=== PATIENT | male | born 1985 | race Caucasian/White ===

== ENCOUNTER 2016-06-20 18:22 | Emergency (ER) | payer OTHER ==
[~2016-06-20] VITALS: Ht 175.3 cm; Wt 76.4 kg
[2016-06-20 18:34] VITALS: BP 121/77; PULSE 98; RESP 16; TEMP 97.5; O2SAT 95
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
--- NOTE | 2016-06-20 21:47 | RADRPT ---
EXAM DATE/TIME: 06/20/2016 19:37 [facility] COMPARISON: No previous studies available for comparison. INDICATIONS : Patient complains of lower back pain after being in [facility]. MEDICAL HISTORY : None. SURGICAL HISTORY : None. ENCOUNTER: Initial ACUITY: 1 day PAIN SCORE: 2/10 LOCATION: L-Spine FINDINGS: Two view examination was performed. There are five non-rib bearing vertebral bodies. The vertebral bodies are in normal alignment without evidence of subluxation or scoliosis. The disc spaces are kavitha ntained. The pedicles are intact. Bony mineralization is normal. No fracture is identified. CONCLUSION: Normal examination for a patient of this age. Kwame Winslow MD on June 20, 2016 at 21:45 Board Certified Radiologist. This report was verified electronically.
== END 2016-06-20 22:21 | disposition home or self-care (01) ==
LOC: NEPB 18:22
DX: S39.012A Strain of muscle, fascia and tendon of lower back, initial encounter (principal); V29.49XA Motorcycle driver injured in collision with other motor vehicles in traffic accident, initial encounter; Y93.89 Activity, other specified; Y92.410 Unspecified street and highway as the place of occurrence of the external cause
CPT/HCPCS: 72100; 99283